=== PATIENT | male | born 1945 | race Caucasian/White ===

== ENCOUNTER 2017-08-22 11:02 | Inpatient (IN) | payer MEDICARE, OTHER ==
[2017-08-22] MEDS: ACETAMINOPHEN 325 MG TAB PO (12:11)
[2017-08-22 12:18] LABS: ABNORMAL IP MESSAGE 1; HEMATOCRIT 31.8 % (42.0-52.0); HEMOGLOBIN 10.4 g/dl (14.0-18.0); MEAN CORPUSCULAR HEMOGLOBIN 33.4 pg (29.0-33.0); MEAN CORPUSCULAR HGB CONC 32.7 g/dl (32.0-37.0); MEAN CORPUSCULAR VOLUME 102.3 fl (82.0-101.0); MEAN PLATELET VOLUME 10.1 fl (7.4-10.4); PLATELET COUNT 510 10^3/UL (140-415); POSITIVE DIFF @See below; RED BLOOD COUNT 3.11 10^6/ul (4.70-6.10); RED CELL DISTRIBUTION WIDTH 16.6 % (11.5-14.5)
[2017-08-22 12:18] LABS: WHITE BLOOD COUNT 8.5 10^3/ul (4.8-10.8)
[2017-08-22 12:23] LABS: ADD MAN DIFF? YES
[2017-08-22 12:36] LABS: ALANINE AMINOTRANSFERASE 21 IU/L (13-69); ALBUMIN 3.8 g/dl (3.3-4.9); ALBUMIN/GLOBULIN RATIO 0.97; ALKALINE PHOSPHATASE 66 IU/L (42-121); ANION GAP 20 (8-16); ASPARTATE AMINO TRANSFERASE 20 IU/L (15-46); BLOOD UREA NITROGEN 58 mg/dl (7-20); CALCIUM 8.6 mg/dl (8.4-10.2); CARBON DIOXIDE 16 mmol/L (21-31); CHLORIDE 108 mmol/L (97-110); CREATININE 5.18 mg/dl (0.61-1.24); GLUCOSE 154 mg/dl (70-220); SODIUM 138 mmol/L (135-144); TOTAL PROTEIN 7.7 g/dl (6.1-8.1)
[2017-08-22 12:38] LABS: POTASSIUM 5.6 mmol/L (3.5-5.1)
[2017-08-22 12:44] LABS: INR 0.94; PROTIME 12.7 Sec (11.9-14.9)
[2017-08-22 12:45] LABS: PARTIAL THROMBOPLASTIN TIME 42.6 Sec (25.0-35.0)
[2017-08-22 12:48] LABS: TROPONIN-I < 0.012 ng/ml (0.00-0.12); URINE BLOOD (Dip) POC 2+ (NEGATIVE); URINE GLUCOSE (Dip) POC Negative (NEGATIVE); URINE KETONES (Dip) POC Negative (NEGATIVE); URINE LEUKOCYTE EST (Dip) POC Trace (NEGATIVE); URINE NITRITE (Dip) POC Negative (NEGATIVE); URINE TOTAL PROTEIN POC 3+ (NEGATIVE)
[2017-08-22 12:53] LABS: BAND NEUTROPHILS #M 1.3 10^3/ul (0.0-0.6); BAND NEUTROPHILS % (M) 16 % (0-4); LYMPHOCYTES #M 0.1 10^3/ul (0.8-2.9); LYMPHOCYTES % (M) 2 % (15-51); REACTIVE LYMPHOCYTES% (M) 1 % (0-0); SEG NEUT #M 6.7 10^3/ul (1.6-7.5); SEGMENTED NEUTROPHILS (M) % 77 % (39-77)
[2017-08-22 12:54] LABS: ANISOCYTOSIS 2+ (0-0); BASOPHILS % (M) 1 % (0-2); EOSINOPHILS % (M) 3 % (0-7); MICROCYTOSIS 1+ (0-0); PLATELET ESTIMATE INCREASED; POLYCHROMASIA 3+ (0-0)
[2017-08-22] MEDS: ALBUTEROL 0.5% (NEB) 2.5 MG/0.5 ML AMP INH (13:16)
[2017-08-22 13:20] LABS: ADD UMIC YES; UR ASCORBIC ACID NEGATIVE (NEGATIVE); UR BACTERIA FEW /HPF (NONE SEEN); UR BILIRUBIN (Dip) NEGATIVE (NEGATIVE); UR BLOOD (Dip) 2+ mg/dL (NEGATIVE); UR BUDDING YEAST MANY /HPF (NONE SEEN); UR CLARITY SLIGHTLY CLOUDY (CLEAR); UR COLOR YELLOW (YELLOW); UR GLUCOSE (Dip) 1+ mg/dL (NEGATIVE); UR KETONES (Dip) NEGATIVE (NEGATIVE); UR LEUKOCYTE ESTERASE (Dip) 1+ Leu/ul (NEGATIVE); UR NITRITE (Dip) NEGATIVE (NEGATIVE); UR RBC 49 /HPF (0-5); UR SPECIFIC GRAVITY (Dip) 1.011 (1.003-1.030); UR TOTAL PROTEIN (Dip) 3+ mg/dl (NEGATIVE); UR UROBILINOGEN (Dip) NEGATIVE (NEGATIVE); UR WBC 94 /HPF (0-5)
[2017-08-22] MEDS: DEXTROSE 50% 50 ML SYRINGE IV (14:01)
[2017-08-22] MEDS: NA POLYST SULFON 15 GM/60 ML BTL PO (14:01)
[2017-08-22] MEDS: INSULIN REGULAR, HUMAN 100 UNIT/1 ML 3ML VIAL IVP (14:04)
[2017-08-22] MEDS: PIPER-TAZO 2.25 GM (PMX) 50 ML IVPB (14:41)
[2017-08-22 15:11] LABS: LACTIC ACID 3.9 mmol/L (0.5-2.0)
[2017-08-22] MEDS ORDERED: DEXTROSE 50% 50 ML SYRINGE IV ×2 (15:30)
[2017-08-22] MEDS ORDERED: GLUCAGON 1 MG INJ IM (15:30)
[2017-08-22] MEDS ORDERED: GLUCOSE GEL 15 GRAM TUBE PO ×2 (15:30)
[2017-08-22] MEDS ORDERED: BARIUM SULF 2% 450 ML BTL (BERRY SMOOTHIE) PO (15:30)
[2017-08-22] MEDS ORDERED: GLUCOSE GEL 15 GRAM TUBE BUCCAL (15:30)
[2017-08-22] MEDS: INSULIN ASPART [NOVOLOG] 3 ML PEN SC ×2 (17:18→22:58)
[2017-08-22 18:02] LABS: ANION GAP 19 (8-16); BLOOD UREA NITROGEN 57 mg/dl (7-20); CALCIUM 8.2 mg/dl (8.4-10.2); CARBON DIOXIDE 18 mmol/L (21-31); CHLORIDE 108 mmol/L (97-110); CREATININE 5.59 mg/dl (0.61-1.24); GLUCOSE 174 mg/dl (70-220); MAGNESIUM 1.6 mg/dl (1.7-2.5); PHOSPHORUS 5.7 mg/dl (2.5-4.9); POTASSIUM 4.8 mmol/L (3.5-5.1); SODIUM 140 mmol/L (135-144)
[2017-08-22 18:07] LABS: LACTIC ACID 2.2 mmol/L (0.5-2.0)
[2017-08-22] MEDS: TAMSULOSIN (SR) 0.4 MG CAP PO (22:26)
[2017-08-22] MEDS: FLUCONAZOLE 200 MG/NS (PMX) 100 ML IVPB (22:26)
[2017-08-23] MEDS: ACCU-CHEK XX (02:37)
[2017-08-23 06:41] LABS: ADD MAN DIFF? NO
[2017-08-23 06:51] LABS: ABNORMAL IP MESSAGE 1; HEMATOCRIT 26.3 % (42.0-52.0); HEMOGLOBIN 8.7 g/dl (14.0-18.0); MEAN CORPUSCULAR HEMOGLOBIN 33.9 pg (29.0-33.0); MEAN CORPUSCULAR HGB CONC 33.1 g/dl (32.0-37.0); MEAN CORPUSCULAR VOLUME 102.3 fl (82.0-101.0); MEAN PLATELET VOLUME 10.4 fl (7.4-10.4); PLATELET COUNT 404 10^3/UL (140-415); POSITIVE DIFF @See below; RED BLOOD COUNT 2.57 10^6/ul (4.70-6.10); RED CELL DISTRIBUTION WIDTH 16.3 % (11.5-14.5)
[2017-08-23 07:09] LABS: ANION GAP 17 (8-16); BLOOD UREA NITROGEN 53 mg/dl (7-20); CALCIUM 7.7 mg/dl (8.4-10.2); CARBON DIOXIDE 18 mmol/L (21-31); CHLORIDE 109 mmol/L (97-110); CREATININE 5.54 mg/dl (0.61-1.24); GLUCOSE 128 mg/dl (70-220); MAGNESIUM 1.5 mg/dl (1.7-2.5); PHOSPHORUS 5.8 mg/dl (2.5-4.9); SODIUM 139 mmol/L (135-144)
[2017-08-23] MEDS: MULTIVIT/CA CARB/B CMPLX/FA TAB PO (08:08)
[2017-08-23] MEDS: ATENOLOL 50 MG TAB PO (08:08)
[2017-08-23] MEDS: AMLODIPINE 5 MG TAB PO (08:09)
[2017-08-23] MEDS: INSULIN ASPART [NOVOLOG] 3 ML PEN SC ×4 (08:11→21:29)
[2017-08-23] MEDS: INSULIN GLARGINE [LANtus] 3 ML PEN SC (08:14)
[2017-08-23 10:08] LABS: ANISOCYTOSIS 1+ (0-0); BAND NEUTROPHILS #M 0.4 10^3/ul (0.0-0.6); BAND NEUTROPHILS % (M) 8 % (0-4); BASOPHIL #M 0.1 10^3/ul (0.0-0.0); BASOPHILS % (M) 3 % (0-2); EOSINOPHILS % (M) 1 % (0-7); GIANT THROMBO% (M) 2 % (0-0); LYMPHOCYTES #M 0.3 10^3/ul (0.8-2.9); LYMPHOCYTES % (M) 7 % (15-51); METAMYELOCYTES #M 0.1 10^3/ul (0.0-0.0); METAMYELOCYTES %M 2 % (0-0); MONOCYTE #M 0.3 10^3/ul (0.3-0.9); MONOCYTES % (M) 7 % (0-11); MYELOCYTES % (M) 1 % (0-0); OVALOCYTES 1+ (0-0); PLATELET ESTIMATE NORMAL; POIKILOCYTOSIS 1+ (0-0); POLYCHROMASIA 1+ (0-0); REACTIVE LYMPHOCYTES% (M) 1 % (0-0); SEG NEUT #M 3.5 10^3/ul (1.6-7.5); SEGMENTED NEUTROPHILS (M) % 70 % (39-77); SMUDGE%M 2 % (0-0); STOMATOCYTES 1+ (0-0)
[2017-08-23] MEDS: MAGNESIUM SULFATE 2 GM/50 ML 50 ML IVPB (11:19)
[2017-08-23] MEDS: SEVELAMER CARBONATE 0.8 GM PKT PO ×2 (12:37→17:46)
[2017-08-23] MEDS: CALCIUM ACETATE 667 MG CAP PO (17:46)
[2017-08-23] MEDS: FLUCONAZOLE 200 MG/NS (PMX) 100 ML IVPB (20:24)
[2017-08-23] MEDS: TAMSULOSIN (SR) 0.4 MG CAP PO (20:24)
[2017-08-23] MEDS: BARIUM SULF 2% 450 ML BTL (BERRY SMOOTHIE) PO (21:14)
[2017-08-24] MEDS: HYDROCODONE/APAP (5/325) TAB PO (01:07)
[2017-08-24] MEDS: ACCU-CHEK XX (03:38)
[2017-08-24] MEDS: INSULIN ASPART [NOVOLOG] 3 ML PEN SC ×2 (07:52→12:15)
[2017-08-24] MEDS: CALCIUM ACETATE 667 MG CAP PO ×2 (08:00→12:14)
[2017-08-24] MEDS: SEVELAMER CARBONATE 0.8 GM PKT PO ×2 (08:00→12:14)
[2017-08-24] MEDS: INSULIN GLARGINE [LANtus] 3 ML PEN SC (08:05)
[2017-08-24] MEDS: AMLODIPINE 5 MG TAB PO (08:22)
[2017-08-24] MEDS: MULTIVIT/CA CARB/B CMPLX/FA TAB PO (08:22)
[2017-08-24] MEDS: ATENOLOL 50 MG TAB PO (08:22)
[2017-08-24 08:37] LABS: WHITE BLOOD COUNT 3.9 10^3/ul (4.8-10.8)
[2017-08-24 08:37] LABS: ABNORMAL IP MESSAGE 1; HEMOGLOBIN 9.4 g/dl (14.0-18.0); MEAN CORPUSCULAR HGB CONC 32.4 g/dl (32.0-37.0); MEAN CORPUSCULAR VOLUME 101.8 fl (82.0-101.0); MEAN PLATELET VOLUME 10.3 fl (7.4-10.4); PLATELET COUNT 437 10^3/UL (140-415); POSITIVE DIFF @See below; RED BLOOD COUNT 2.85 10^6/ul (4.70-6.10); RED CELL DISTRIBUTION WIDTH 16.2 % (11.5-14.5)
[2017-08-24 08:39] LABS: ADD MAN DIFF? YES
[2017-08-24 08:59] LABS: ANION GAP 16 (8-16); BLOOD UREA NITROGEN 58 mg/dl (7-20); CARBON DIOXIDE 19 mmol/L (21-31); CHLORIDE 106 mmol/L (97-110); CREATININE 5.32 mg/dl (0.61-1.24); GLUCOSE 167 mg/dl (70-220); SODIUM 136 mmol/L (135-144)
[2017-08-24 09:35] LABS: ANISOCYTOSIS 1+ (0-0); BAND NEUTROPHILS #M 0.5 10^3/ul (0.0-0.6); BAND NEUTROPHILS % (M) 15 % (0-4); BASOPHIL #M 0.2 10^3/ul (0.0-0.0); BASOPHILS % (M) 7 % (0-2); EOSINOPHILS % (M) 4 % (0-7); LYMPHOCYTES #M 0.6 10^3/ul (0.8-2.9); LYMPHOCYTES % (M) 17 % (15-51); MICROCYTOSIS 1+ (0-0); MONOCYTES % (M) 2 % (0-11); PLATELET ESTIMATE INCREASED; POLYCHROMASIA 1+ (0-0); REACTIVE LYMPHOCYTES #M 0.1 10^3/ul (0.0-0.0); REACTIVE LYMPHOCYTES% (M) 3 % (0-0); SEGMENTED NEUTROPHILS (M) % 52 % (39-77); SMUDGE%M 10 % (0-0)
[2017-08-25] MEDS ORDERED: FLUCONAZOLE 200 MG TAB PO (09:00)
== END 2017-08-24 15:45 | disposition home or self-care (01) | DRG 872 ==
LOC: E/R 11:02 → TEL 13:08
DX: A41.81 Sepsis due to Enterococcus (principal); N17.9 Acute kidney failure, unspecified; E11.22 Type 2 diabetes mellitus with diabetic chronic kidney disease; N39.0 Urinary tract infection, site not specified; T83.511A Infection and inflammatory reaction due to indwelling urethral catheter, initial encounter; E83.42 Hypomagnesemia; N18.5 Chronic kidney disease, stage 5; E87.5 Hyperkalemia; B95.2 Enterococcus as the cause of diseases classified elsewhere; E83.39 Other disorders of phosphorus metabolism; R31.0 Gross hematuria; C61 Malignant neoplasm of prostate; E78.5 Hyperlipidemia, unspecified; I25.10 Atherosclerotic heart disease of native coronary artery without angina pectoris; R33.8 Other retention of urine; Z16.21 Resistance to vancomycin; Z95.5 Presence of coronary angioplasty implant and graft; Z87.891 Personal history of nicotine dependence; Z79.4 Long term (current) use of insulin; Z79.899 Other long term (current) drug therapy
CPT/HCPCS: 36415; 71045; 74176; 80048; 80053; 81001; 81003; 82962; 83036; 83605; 83735; 84100; 84153; 84154; 84484; 85025; 85610; 85730; 86850; 86900; 86901; 87040; 87086; 93005; 94664; 96374; 96375; 99285-25

== ENCOUNTER 2017-08-25 07:15 | Day surgery (SDC) | payer MEDICARE, OTHER ==
[2017-08-25 08:22] LABS: WHITE BLOOD COUNT 5.5 10^3/ul (4.8-10.8)
[2017-08-25 08:22] LABS: ABNORMAL IP MESSAGE 1; HEMATOCRIT 29.7 % (42.0-52.0); HEMOGLOBIN 9.5 g/dl (14.0-18.0); MEAN CORPUSCULAR HEMOGLOBIN 33.3 pg (29.0-33.0); MEAN CORPUSCULAR VOLUME 104.2 fl (82.0-101.0); MEAN PLATELET VOLUME 10.1 fl (7.4-10.4); PLATELET COUNT 423 10^3/UL (140-415); POSITIVE DIFF @See below; RED BLOOD COUNT 2.85 10^6/ul (4.70-6.10); RED CELL DISTRIBUTION WIDTH 16.1 % (11.5-14.5)
[2017-08-25 08:33] LABS: ADD MAN DIFF? YES
[2017-08-25 08:41] LABS: ANION GAP 18 (8-16); CARBON DIOXIDE 18 mmol/L (21-31); CHLORIDE 110 mmol/L (97-110); CHOL/HDL RATIO 6.4 RATIO; CHOLESTEROL 206 mg/dl (100-200); GLUCOSE 111 mg/dl (70-220); HDL CHOLESTEROL 32 mg/dl (31-75); LDL CHOLESTEROL,CALCULATED 120 mg/dl; TRIGLYCERIDES 268 mg/dl (0-149)
[2017-08-25 08:53] LABS: POTASSIUM 4.9 mmol/L (3.5-5.1); SODIUM 141 mmol/L (135-144)
[2017-08-25 08:55] LABS: INR 1.06; PROTIME 13.9 Sec (11.9-14.9); PT RATIO 1.1
[2017-08-25 08:56] LABS: CREATININE 5.19 mg/dl (0.61-1.24)
[2017-08-25 08:57] LABS: BLOOD UREA NITROGEN 61 mg/dl (7-20)
[2017-08-25 09:02] LABS: PARTIAL THROMBOPLASTIN TIME 46.2 Sec (25.0-35.0)
[2017-08-25] MEDS ORDERED: FAMOTIDINE 20 MG TAB PO (09:30)
[2017-08-25] MEDS ORDERED: SOD CHLORIDE 0.45% 1,000 ML IV (09:30)
[2017-08-25] MEDS ORDERED: DIAZEPAM 5 MG TAB PO (09:30)
[2017-08-25] MEDS ORDERED: DIPHENHYDRAMINE 50 MG CAP PO (09:30)
[2017-08-25 09:41] LABS: ANISOCYTOSIS 1+ (0-0); BAND NEUTROPHILS #M 0.8 10^3/ul (0.0-0.6); BAND NEUTROPHILS % (M) 16 % (0-4); BASOPHIL #M 0.1 10^3/ul (0.0-0.0); BASOPHILS % (M) 3 % (0-2); EOSINOPHILS % (M) 5 % (0-7); ERYTHROBLAST% (NRBC) (M) 2 % (0-0); GIANT THROMBO% (M) 2 % (0-0); LYMPHOCYTES #M 0.3 10^3/ul (0.8-2.9); LYMPHOCYTES % (M) 7 % (15-51); METAMYELOCYTES #M 0.1 10^3/ul (0.0-0.0); METAMYELOCYTES %M 2 % (0-0); MICROCYTOSIS 1+ (0-0); MONOCYTES % (M) 1 % (0-11); PLATELET ESTIMATE INCREASED; POIKILOCYTOSIS 1+ (0-0); POLYCHROMASIA 2+ (0-0); SEG NEUT #M 3.7 10^3/ul (1.6-7.5); SEGMENTED NEUTROPHILS (M) % 66 % (39-77); SMUDGE%M 3 % (0-0)
== END 2017-08-25 10:01 | disposition home or self-care (01) ==
LOC: SDS 07:15
DX: R07.9 Chest pain, unspecified (principal); R06.02 Shortness of breath; Z53.9 Procedure and treatment not carried out, unspecified reason
CPT/HCPCS: 71045; 80048; 80061; 82962; 85025; 85610; 85730; 93005

== ENCOUNTER 2017-10-22 11:50 | Emergency (ER) | payer SELFPAY, OTHER, MEDICARE | END 2017-10-22 12:36 | disposition left against medical advice (07) | LOC: E/R 12:36 | DX: Z53.21 Procedure and treatment not carried out due to patient leaving prior to being seen by health care provider (principal) ==

== ENCOUNTER 2017-10-22 21:05 | Inpatient (IN) | payer MEDICARE, OTHER ==
[2017-10-22] MEDS: SOD CHLORIDE 0.9% 1,000 ML IV (02:30)
[2017-10-22] MEDS: ONDANSETRON 4 MG INJ IV ×2 (21:35→23:19)
[2017-10-22] MEDS: morphine 4 MG/ML VIAL IV (21:35)
[2017-10-22 21:55] LABS: ABNORMAL IP MESSAGE 1; HEMATOCRIT 33.4 % (42.0-52.0); HEMOGLOBIN 10.7 g/dl (14.0-18.0); MEAN CORPUSCULAR HEMOGLOBIN 32.3 pg (29.0-33.0); MEAN CORPUSCULAR VOLUME 100.9 fl (82.0-101.0); MEAN PLATELET VOLUME 10.3 fl (7.4-10.4); PLATELET COUNT 450 10^3/UL (140-415); POSITIVE DIFF @See below; RED BLOOD COUNT 3.31 10^6/ul (4.70-6.10); RED CELL DISTRIBUTION WIDTH 15.7 % (11.5-14.5)
[2017-10-22 21:55] LABS: WHITE BLOOD COUNT 8.6 10^3/ul (4.8-10.8)
[2017-10-22 22:16] LABS: INR 1.14; PROTIME 14.8 Sec (11.9-14.9); PT RATIO 1.2
[2017-10-22 22:17] LABS: PARTIAL THROMBOPLASTIN TIME 44.2 Sec (25.0-35.0)
[2017-10-22 22:22] LABS: ALANINE AMINOTRANSFERASE 21 IU/L (13-69); ALBUMIN 3.8 g/dl (3.3-4.9); ALBUMIN/GLOBULIN RATIO 1.05; ALKALINE PHOSPHATASE 73 IU/L (42-121); ANION GAP 22 (8-16); ASPARTATE AMINO TRANSFERASE 31 IU/L (15-46); BLOOD UREA NITROGEN 61 mg/dl (7-20); CALCIUM 8.1 mg/dl (8.4-10.2); CARBON DIOXIDE 18 mmol/L (21-31); CHLORIDE 104 mmol/L (97-110); GLUCOSE 223 mg/dl (70-220); POTASSIUM 5.4 mmol/L (3.5-5.1); SODIUM 139 mmol/L (135-144); TOTAL PROTEIN 7.4 g/dl (6.1-8.1)
[2017-10-22 22:25] LABS: LACTIC ACID 3.1 mmol/L (0.5-2.0)
[2017-10-22 22:34] LABS: ADD MAN DIFF? YES
[2017-10-22 22:35] LABS: TROPONIN-I < 0.012 ng/ml (0.00-0.12)
[2017-10-22] MEDS: CEFTRIAXONE 1 GM/50 ML (PMX) 50 ML IVPB (23:20)
[2017-10-22] MEDS: HYDROmorphONE 1 MG/5 ML IV SYRINGE IV (23:20)
[2017-10-22] MEDS: SODIUM CHLORIDE 0.9% 1L BAG IV* (23:22)
[2017-10-22] MEDS ORDERED: DOCUSATE SODIUM 100 MG CAP PO (23:30)
[2017-10-22] MEDS ORDERED: ACETAMINOPHEN 325 MG TAB PO (23:30)
[2017-10-22] MEDS ORDERED: NACL 0.9% 3 ML SYG IV (23:30)
[2017-10-22] MEDS ORDERED: BISACODYL (EC) 5 MG TAB PO (23:30)
[2017-10-22 23:31] LABS: ANISOCYTOSIS 1+ (0-0); BAND NEUTROPHILS #M 1.8 10^3/ul (0.0-0.6); BAND NEUTROPHILS % (M) 21 % (0-4); BASOPHILS % (M) 1 % (0-2); EOSINOPHILS % (M) 1 % (0-7); GIANT THROMBO% (M) 1 % (0-0); LYMPHOCYTES #M 0.3 10^3/ul (0.8-2.9); LYMPHOCYTES % (M) 4 % (15-51); MICROCYTOSIS 1+ (0-0); MONOCYTE #M 0.1 10^3/ul (0.3-0.9); MONOCYTES % (M) 2 % (0-11); MYELOCYTES #M 0.1 10^3/ul (0.0-0.0); MYELOCYTES % (M) 2 % (0-0); PLATELET ESTIMATE INCREASED; POIKILOCYTOSIS 1+ (0-0); POLYCHROMASIA 1+ (0-0); SEG NEUT #M 6.1 10^3/ul (1.6-7.5); SEGMENTED NEUTROPHILS (M) % 69 % (39-77); SMUDGE%M 2 % (0-0)
[2017-10-23] MEDS: AZITHROMYCIN 500MG/NS (PMX) 250 ML IV (00:05)
[2017-10-23 00:06] LABS: LIPASE 159 U/L (23-300)
[2017-10-23 00:11] LABS: LACTIC ACID 2.8 mmol/L (0.5-2.0)
[2017-10-23 00:34] LABS: ADD UMIC YES; UR ASCORBIC ACID NEGATIVE (NEGATIVE); UR BACTERIA FEW /HPF (NONE SEEN); UR BILIRUBIN (Dip) NEGATIVE (NEGATIVE); UR BLOOD (Dip) NEGATIVE (NEGATIVE); UR CLARITY CLEAR (CLEAR); UR COLOR YELLOW (YELLOW); UR GLUCOSE (Dip) 2+ mg/dL (NEGATIVE); UR KETONES (Dip) NEGATIVE (NEGATIVE); UR LEUKOCYTE ESTERASE (Dip) NEGATIVE Leu/ul (NEGATIVE); UR NITRITE (Dip) NEGATIVE (NEGATIVE); UR RBC 1 /HPF (0-5); UR SPECIFIC GRAVITY (Dip) 1.013 (1.003-1.030); UR TOTAL PROTEIN (Dip) 3+ mg/dl (NEGATIVE); UR UROBILINOGEN (Dip) NEGATIVE (NEGATIVE); UR WBC 5 /HPF (0-5)
[2017-10-23] MEDS: AZTREONAM 1 GM/NS (PMX) 50 ML IVPB (01:22)
[2017-10-23] MEDS: morphine 2 MG INJ IV ×5 (02:12→20:44)
[2017-10-23 04:01] LABS: LACTIC ACID 2.5 mmol/L (0.5-2.0)
[2017-10-23] MEDS ORDERED: VANCOMYCIN IV PER PHARMACY XX (05:00)
[2017-10-23] MEDS: ONDANSETRON 4 MG INJ IV ×2 (05:45→20:36)
[2017-10-23] MEDS: VANCOMYCIN 1.5 GM in SOD CHLORIDE 0.9% 250 ML IVPB (05:51)
[2017-10-23 06:14] LABS: WHITE BLOOD COUNT 9.6 10^3/ul (4.8-10.8)
[2017-10-23 06:14] LABS: ABNORMAL IP MESSAGE 1; HEMATOCRIT 30.3 % (42.0-52.0); HEMOGLOBIN 9.5 g/dl (14.0-18.0); MEAN CORPUSCULAR HEMOGLOBIN 32.4 pg (29.0-33.0); MEAN CORPUSCULAR HGB CONC 31.4 g/dl (32.0-37.0); MEAN CORPUSCULAR VOLUME 103.4 fl (82.0-101.0); MEAN PLATELET VOLUME 10.4 fl (7.4-10.4); PLATELET COUNT 386 10^3/UL (140-415); POSITIVE DIFF @See below; RED BLOOD COUNT 2.93 10^6/ul (4.70-6.10); RED CELL DISTRIBUTION WIDTH 15.7 % (11.5-14.5)
[2017-10-23 06:22] LABS: LACTIC ACID 3.2 mmol/L (0.5-2.0)
[2017-10-23 06:29] LABS: HEMOGLOBIN A1C 5.9 % (0-5.9)
[2017-10-23 06:44] LABS: C-REACTIVE PROTEIN 18.3 mg/dl (0.0-0.9)
[2017-10-23] MEDS: LABETALOL HCL 20MG INJ IV (06:52)
[2017-10-23 06:58] LABS: CARCINOEMBRYONIC ANTIGEN 2.7 ng/ml (0.0-5.0)
[2017-10-23] MEDS ORDERED: PIPER-TAZO 2.25 GM (PMX) 50 ML IVPB ×2 (07:30→12:00)
[2017-10-23 07:53] LABS: ERYTHROCYTE SEDIMENTATION RATE 103 mm/Hr (0-20)
[2017-10-23 08:25] LABS: ALANINE AMINOTRANSFERASE 12 IU/L (13-69); ALBUMIN 3.2 g/dl (3.3-4.9); ALKALINE PHOSPHATASE 57 IU/L (42-121); ANION GAP 23 (8-16); ASPARTATE AMINO TRANSFERASE 21 IU/L (15-46); BLOOD UREA NITROGEN 58 mg/dl (7-20); CALCIUM 7.2 mg/dl (8.4-10.2); CARBON DIOXIDE 15 mmol/L (21-31); CHLORIDE 111 mmol/L (97-110); CHOL/HDL RATIO 5.1 RATIO; CHOLESTEROL 149 mg/dl (100-200); CREATININE 5.48 mg/dl (0.61-1.24); GLUCOSE 242 mg/dl (70-220); HDL CHOLESTEROL 29 mg/dl (31-75); LDL CHOLESTEROL,CALCULATED 87 mg/dl; MAGNESIUM 1.3 mg/dl (1.7-2.5); SODIUM 143 mmol/L (135-144); TOTAL PROTEIN 6.4 g/dl (6.1-8.1); TRIGLYCERIDES 166 mg/dl (0-149)
[2017-10-23] MEDS ORDERED: GLUCAGON 1 MG INJ IM (08:30)
[2017-10-23] MEDS ORDERED: GLUCOSE GEL 15 GRAM TUBE PO ×2 (08:30)
[2017-10-23] MEDS ORDERED: DEXTROSE 50% 50 ML SYRINGE IV ×2 (08:30)
[2017-10-23] MEDS ORDERED: GLUCOSE GEL 15 GRAM TUBE BUCCAL (08:30)
[2017-10-23] MEDS: hydrALAzine 20 MG INJ IV ×2 (08:39→13:15)
[2017-10-23] MEDS: PIPER-TAZO 2.25 GM (PMX) 50 ML IVPB ×3 (08:47→23:38)
[2017-10-23] MEDS: SOD CHLORIDE 0.9% 1,000 ML IV (08:48)
[2017-10-23] MEDS: SOD CHLORIDE 0.9% 500 ML IV (08:48)
[2017-10-23 09:12] LABS: POTASSIUM 5.9 mmol/L (3.5-5.1)
[2017-10-23] MEDS ORDERED: metroNIDAZOLE 500 MG TAB PO (10:00)
[2017-10-23] MEDS: RANOLAZINE (SR) 500 MG TAB PO ×2 (10:16→20:36)
[2017-10-23] MEDS: ASPIRIN (EC) 81 MG TAB PO (10:17)
[2017-10-23] MEDS: MULTIVIT/CA CARB/B CMPLX/FA TAB PO (10:17)
[2017-10-23] MEDS: FLUCONAZOLE 200 MG TAB PO (10:17)
[2017-10-23] MEDS: ATENOLOL 50 MG TAB PO (10:18)
[2017-10-23] MEDS: AMLODIPINE 5 MG TAB PO (10:18)
[2017-10-23] MEDS: INSULIN ASPART [NOVOLOG] 3 ML PEN SC ×4 (10:23→20:59)
[2017-10-23] MEDS: SOD CHLORIDE 0.45% 1,000 ML IV ×2 (10:53→20:46)
[2017-10-23 11:05] LABS: ADD MAN DIFF? YES
[2017-10-23 11:06] LABS: BAND NEUTROPHILS #M 1.3 10^3/ul (0.0-0.6); BAND NEUTROPHILS % (M) 14 % (0-4); LYMPHOCYTES #M 0.1 10^3/ul (0.8-2.9); LYMPHOCYTES % (M) 2 % (15-51); MONOCYTE #M 0.1 10^3/ul (0.3-0.9); MONOCYTES % (M) 2 % (0-11); SEG NEUT #M 7.9 10^3/ul (1.7-7.5); SEGMENTED NEUTROPHILS (M) % 81 % (39-77)
[2017-10-23 11:08] LABS: ANISOCYTOSIS 1+ (0-0); BURR CELLS 1+ (0-0); GIANT THROMBO% (M) 2 % (0-0); MICROCYTOSIS 1+ (0-0); OVALOCYTES 1+ (0-0); PLATELET ESTIMATE INCREASED; POIKILOCYTOSIS 2+ (0-0); POLYCHROMASIA 1+ (0-0)
[2017-10-23] MEDS: MAGNESIUM SULFATE 3 GM in DEXTROSE 5% 100 ML IVPB (11:15)
[2017-10-23] MEDS: CALCIUM GLUCONATE 10% 1 GM in DEXTROSE 5% 100 ML IVPB (11:15)
[2017-10-23 11:53] LABS: LACTIC ACID 2.9 mmol/L (0.5-2.0)
[2017-10-23 11:54] LABS: CREATINE KINASE 37 IU/L (23-200)
[2017-10-23 12:01] LABS: CK INDEX 1.1
[2017-10-23 12:12] LABS: AADO2 Arterial 47.9 mmHg (7.0-24.0); Allen Test ACCEPTAB; Arterial Base Excess -9.6 mmol/L (-3.0-3); Arterial COHb 0.1 % (0.0-3.0); Arterial Fraction of Oxyhgb 91.5 % (93.0-99.0); Arterial HCO3 15.3 mmol/L (22.0-26.0); Arterial MetHb 0.4 % (0.0-1.5); Arterial Total Hemglobin 11.4 g/dl (12.0-18.0); Arterial pCO2 30.3 mmhg (35-45); MODE ROOM AIR; Site Left Radial
[2017-10-23 12:14] LABS: CK-MB 0.42 ng/ml (0.0-2.4); TROPONIN-I 0.035 ng/ml (0.00-0.12)
[2017-10-23] MEDS: CALCIUM ACETATE 667 MG CAP PO ×2 (12:54→17:34)
[2017-10-23] MEDS: TAMSULOSIN (SR) 0.4 MG CAP PO (20:36)
[2017-10-23 22:35] LABS: ALANINE AMINOTRANSFERASE 13 IU/L (13-69); ALBUMIN/GLOBULIN RATIO 0.96; ALKALINE PHOSPHATASE 50 IU/L (42-121); ANION GAP 19 (8-16); ASPARTATE AMINO TRANSFERASE 19 IU/L (15-46); BLOOD UREA NITROGEN 61 mg/dl (7-20); CALCIUM 7.7 mg/dl (8.4-10.2); CARBON DIOXIDE 17 mmol/L (21-31); CHLORIDE 107 mmol/L (97-110); CREATININE 5.39 mg/dl (0.61-1.24); GLUCOSE 167 mg/dl (70-220); POTASSIUM 5.5 mmol/L (3.5-5.1); SODIUM 137 mmol/L (135-144); TOTAL PROTEIN 6.1 g/dl (6.1-8.1)
[2017-10-24] MEDS: morphine 2 MG INJ IV ×2 (00:52→04:54)
[2017-10-24] MEDS: INSULIN ASPART [NOVOLOG] 3 ML PEN SC ×6 (00:58→21:00)
[2017-10-24] MEDS: ACCU-CHEK XX (01:06)
[2017-10-24] MEDS: SOD CHLORIDE 0.45% 1,000 ML IV ×3 (03:10→22:55)
[2017-10-24] MEDS: ALBUTEROL/IPRATROPIUM (NEB) 3 ML AMP HHN (04:51)
[2017-10-24] MEDS: PIPER-TAZO 2.25 GM (PMX) 50 ML IVPB ×3 (06:35→21:04)
[2017-10-24 08:24] LABS: ADD MAN DIFF? NO
[2017-10-24 08:43] LABS: ABNORMAL IP MESSAGE 1; BASOPHILS % 0.2 % (0.0-2.0); EOSINOPHILS % 0.1 % (0.0-7.0); HEMATOCRIT 27.6 % (42.0-52.0); HEMOGLOBIN 8.8 g/dl (14.0-18.0); LYMPHOCYTES # 0.3 10^3/ul (0.8-2.9); LYMPHOCYTES % 3.1 % (15.0-51.0); MEAN CORPUSCULAR HEMOGLOBIN 32.7 pg (29.0-33.0); MEAN CORPUSCULAR HGB CONC 31.9 g/dl (32.0-37.0); MEAN CORPUSCULAR VOLUME 102.6 fl (82.0-101.0); MEAN PLATELET VOLUME 10.8 fl (7.4-10.4); MONOCYTE # 0.4 10^3/ul (0.3-0.9); MONOCYTES % 4.2 % (0.0-11.0); NEUTROPHIL # 7.6 10^3/ul (1.6-7.5); NEUTROPHILS % 85.1 % (39.0-77.0); PLATELET COUNT 350 10^3/UL (140-415); POSITIVE DIFF @See below; RED BLOOD COUNT 2.69 10^6/ul (4.70-6.10); RED CELL DISTRIBUTION WIDTH 15.8 % (11.5-14.5)
[2017-10-24] MEDS: ASPIRIN (EC) 81 MG TAB PO (08:46)
[2017-10-24] MEDS: RANOLAZINE (SR) 500 MG TAB PO ×2 (08:46→20:58)
[2017-10-24] MEDS: ATENOLOL 50 MG TAB PO (08:47)
[2017-10-24] MEDS: CALCIUM ACETATE 667 MG CAP PO ×3 (08:47→17:59)
[2017-10-24] MEDS: AMLODIPINE 5 MG TAB PO (08:48)
[2017-10-24] MEDS: MULTIVIT/CA CARB/B CMPLX/FA TAB PO (08:48)
[2017-10-24] MEDS: FLUCONAZOLE 200 MG TAB PO (08:48)
[2017-10-24] MEDS: INSULIN GLARGINE [LANtus] 3 ML PEN SC (08:52)
[2017-10-24 09:09] LABS: ALANINE AMINOTRANSFERASE 14 IU/L (13-69); ALBUMIN 2.5 g/dl (3.3-4.9); ALBUMIN/GLOBULIN RATIO 0.96; ALKALINE PHOSPHATASE 44 IU/L (42-121); ANION GAP 23 (8-16); ASPARTATE AMINO TRANSFERASE 22 IU/L (15-46); BLOOD UREA NITROGEN 66 mg/dl (7-20); CALCIUM 7.6 mg/dl (8.4-10.2); CARBON DIOXIDE 12 mmol/L (21-31); CHLORIDE 106 mmol/L (97-110); CREATININE 5.45 mg/dl (0.61-1.24); GLUCOSE 182 mg/dl (70-220); PHOSPHORUS 7.2 mg/dl (2.5-4.9); POTASSIUM 5.8 mmol/L (3.5-5.1); SODIUM 135 mmol/L (135-144); TOTAL PROTEIN 5.1 g/dl (6.1-8.1)
[2017-10-24 09:54] LABS: ANISOCYTOSIS 1+ (0-0); BAND NEUTROPHILS #M 1.6 10^3/ul (0.0-0.6); BAND NEUTROPHILS % (M) 18 % (0-4); BASOPHIL #M 0.4 10^3/ul (0.0-0.0); BASOPHILS % (M) 5 % (0-2); LYMPHOCYTES #M 0.5 10^3/ul (0.8-2.9); LYMPHOCYTES % (M) 6 % (15-51); MONOCYTE #M 0.2 10^3/ul (0.3-0.9); MONOCYTES % (M) 3 % (0-11); PLATELET ESTIMATE NORMAL; POIKILOCYTOSIS 2+ (0-0); POLYCHROMASIA 3+ (0-0); SEG NEUT #M 6.3 10^3/ul (1.6-7.5); SEGMENTED NEUTROPHILS (M) % 68 % (39-77); SMUDGE%M 5 % (0-0)
[2017-10-24] MEDS: IOHEXOL 14.3 MG(I)/ML (ADULT) BTL PO (16:19)
[2017-10-24 16:50] LABS: LACTIC ACID 1.3 mmol/L (0.5-2.0)
[2017-10-24] MEDS ORDERED: FLUCONAZOLE 100 MG/NS (PMX) 50 ML IVPB (17:00)
[2017-10-24 19:07] LABS: LACTIC ACID 1.4 mmol/L (0.5-2.0)
[2017-10-24] MEDS: TAMSULOSIN (SR) 0.4 MG CAP PO (20:59)
[2017-10-25] MEDS ORDERED: DEXTROSE 50% 50 ML SYRINGE IV ×4 (00:30→22:00)
[2017-10-25] MEDS ORDERED: GLUCAGON 1 MG INJ IM ×2 (00:30→22:00)
[2017-10-25] MEDS ORDERED: GLUCOSE GEL 15 GRAM TUBE BUCCAL ×2 (00:30→22:00)
[2017-10-25] MEDS ORDERED: GLUCOSE GEL 15 GRAM TUBE PO ×4 (00:30→22:00)
[2017-10-25 00:33] LABS: LACTIC ACID 0.9 mmol/L (0.5-2.0)
[2017-10-25] MEDS: ACCU-CHEK XX ×2 (01:49)
[2017-10-25 03:49] LABS: ADD MAN DIFF? NO
[2017-10-25 04:04] LABS: ABNORMAL IP MESSAGE 1; BASOPHILS % 0.3 % (0.0-2.0); EOSINOPHILS % 0.2 % (0.0-7.0); HEMATOCRIT 27.3 % (42.0-52.0); LYMPHOCYTES # 0.2 10^3/ul (0.8-2.9); LYMPHOCYTES % 2.5 % (15.0-51.0); MEAN CORPUSCULAR HEMOGLOBIN 33.2 pg (29.0-33.0); MEAN CORPUSCULAR VOLUME 100.7 fl (82.0-101.0); MEAN PLATELET VOLUME 11.1 fl (7.4-10.4); MONOCYTE # 0.5 10^3/ul (0.3-0.9); MONOCYTES % 5.9 % (0.0-11.0); NEUTROPHIL # 7.5 10^3/ul (1.6-7.5); NEUTROPHILS % 84.6 % (39.0-77.0); PLATELET COUNT 391 10^3/UL (140-415); POSITIVE DIFF @See below; RED BLOOD COUNT 2.71 10^6/ul (4.70-6.10); RED CELL DISTRIBUTION WIDTH 15.8 % (11.5-14.5)
[2017-10-25 04:04] LABS: WHITE BLOOD COUNT 8.9 10^3/ul (4.8-10.8)
[2017-10-25 04:13] LABS: VANCOMYCIN,RANDOM 10.1 ug/ml
[2017-10-25 04:23] LABS: ANION GAP 22 (8-16); BLOOD UREA NITROGEN 83 mg/dl (7-20); CARBON DIOXIDE 15 mmol/L (21-31); CHLORIDE 97 mmol/L (97-110); CREATININE 7.01 mg/dl (0.61-1.24); GLUCOSE 94 mg/dl (70-220); POTASSIUM 5.5 mmol/L (3.5-5.1); SODIUM 128 mmol/L (135-144)
[2017-10-25] MEDS: PIPER-TAZO 2.25 GM (PMX) 50 ML IVPB ×3 (05:30→21:02)
[2017-10-25] MEDS: INSULIN ASPART [NOVOLOG] 3 ML PEN SC ×4 (08:00→20:53)
[2017-10-25] MEDS: CALCIUM ACETATE 667 MG CAP PO ×3 (08:53→17:15)
[2017-10-25] MEDS: MULTIVIT/CA CARB/B CMPLX/FA TAB PO (08:53)
[2017-10-25] MEDS: RANOLAZINE (SR) 500 MG TAB PO ×2 (08:54→20:47)
[2017-10-25] MEDS: ASPIRIN (EC) 81 MG TAB PO (08:54)
[2017-10-25] MEDS: AMLODIPINE 5 MG TAB PO (08:54)
[2017-10-25] MEDS: ATENOLOL 50 MG TAB PO (08:54)
[2017-10-25] MEDS: INSULIN GLARGINE [LANtus] 3 ML PEN SC (09:12)
[2017-10-25 09:46] LABS: LACTIC ACID 0.7 mmol/L (0.5-2.0)
[2017-10-25] MEDS: NA POLYST SULFON 15 GM/60 ML BTL PO (10:58)
[2017-10-25] MEDS: FUROSEMIDE 40 MG INJ IV (10:58)
[2017-10-25 12:09] LABS: LACTIC ACID 1.1 mmol/L (0.5-2.0)
[2017-10-25] MEDS: HYDROmorphONE 0.5 MG/0.5 ML SYG IV (12:46)
[2017-10-25] MEDS: ONDANSETRON 4 MG INJ IV (12:46)
[2017-10-25] MEDS: SOD CHLORIDE 0.45% 1,000 ML IV (12:51)
[2017-10-25] MEDS: ALBUTEROL/IPRATROPIUM (NEB) 3 ML AMP HHN (14:18)
[2017-10-25] MEDS: VANCOMYCIN 1 GM 250 ML IVPB (14:48)
[2017-10-25 16:01] LABS: IRON 27 ug/dl (35-150)
[2017-10-25 16:02] LABS: PHOSPHORUS 9.4 mg/dl (2.5-4.9)
[2017-10-25 16:11] LABS: % IRON SATURATION 19 % SAT (22-52); TOTAL IRON BINDING CAPACITY 144 ug/dl (241-421)
[2017-10-25] MEDS: FLUCONAZOLE 100 MG/NS (PMX) 50 ML IVPB (17:00)
[2017-10-25 18:12] LABS: PSA, FREE 1.7 ng/mL
[2017-10-25 18:22] LABS: ANION GAP 21 (8-16); BLOOD UREA NITROGEN 98 mg/dl (7-20); CALCIUM 7.2 mg/dl (8.4-10.2); CARBON DIOXIDE 15 mmol/L (21-31); CHLORIDE 97 mmol/L (97-110); GLUCOSE 95 mg/dl (70-220); POTASSIUM 5.7 mmol/L (3.5-5.1); SODIUM 127 mmol/L (135-144)
[2017-10-25 18:42] LABS: CREATININE 6.83 mg/dl (0.61-1.24)
[2017-10-25] MEDS: CALCIUM CARBONATE 500 MG CHEW TAB PO (19:05)
[2017-10-25] MEDS: TAMSULOSIN (SR) 0.4 MG CAP PO (20:47)
[2017-10-26] MEDS: PIPER-TAZO 2.25 GM (PMX) 50 ML IVPB ×2 (05:10→13:44)
[2017-10-26] MEDS: INSULIN ASPART [NOVOLOG] 3 ML PEN SC ×3 (05:16→18:00)
[2017-10-26] MEDS: CALCIUM ACETATE 667 MG CAP PO ×3 (08:00→17:59)
[2017-10-26] MEDS: ASPIRIN (EC) 81 MG TAB PO (08:04)
[2017-10-26] MEDS: AMLODIPINE 5 MG TAB PO (08:56)
[2017-10-26] MEDS: MULTIVIT/CA CARB/B CMPLX/FA TAB PO (08:56)
[2017-10-26] MEDS: RANOLAZINE (SR) 500 MG TAB PO ×2 (08:56→21:00)
[2017-10-26] MEDS: CALCIUM CARBONATE 500 MG CHEW TAB PO ×3 (08:57→20:50)
[2017-10-26] MEDS: ATENOLOL 50 MG TAB PO (08:57)
[2017-10-26 10:32] LABS: ADD MAN DIFF? NO
[2017-10-26 10:35] LABS: WHITE BLOOD COUNT 9.5 10^3/ul (4.8-10.8)
[2017-10-26 10:35] LABS: ABNORMAL IP MESSAGE 1; BASOPHILS % 0.2 % (0.0-2.0); EOSINOPHILS % 0.4 % (0.0-7.0); HEMATOCRIT 22.6 % (42.0-52.0); HEMOGLOBIN 7.5 g/dl (14.0-18.0); LYMPHOCYTES # 0.2 10^3/ul (0.8-2.9); LYMPHOCYTES % 2.1 % (15.0-51.0); MEAN CORPUSCULAR HEMOGLOBIN 32.8 pg (29.0-33.0); MEAN CORPUSCULAR HGB CONC 33.2 g/dl (32.0-37.0); MEAN CORPUSCULAR VOLUME 98.7 fl (82.0-101.0); MEAN PLATELET VOLUME 11.2 fl (7.4-10.4); MONOCYTE # 0.7 10^3/ul (0.3-0.9); MONOCYTES % 7.7 % (0.0-11.0); NEUTROPHIL # 8.3 10^3/ul (1.6-7.5); NEUTROPHILS % 87.4 % (39.0-77.0); PLATELET COUNT 437 10^3/UL (140-415); POSITIVE DIFF @See below; RED BLOOD COUNT 2.29 10^6/ul (4.70-6.10); RED CELL DISTRIBUTION WIDTH 15.3 % (11.5-14.5)
[2017-10-26 11:07] LABS: ANION GAP 25 (8-16); BLOOD UREA NITROGEN 112 mg/dl (7-20); CARBON DIOXIDE 16 mmol/L (21-31); CHLORIDE 93 mmol/L (97-110); GLUCOSE 71 mg/dl (70-220); POTASSIUM 5.8 mmol/L (3.5-5.1); SODIUM 128 mmol/L (135-144)
[2017-10-26 11:12] LABS: ANISOCYTOSIS 1+ (0-0); BAND NEUTROPHILS #M 2.5 10^3/ul (0.0-0.6); BAND NEUTROPHILS % (M) 27 % (0-4); LYMPHOCYTES #M 0.4 10^3/ul (0.8-2.9); LYMPHOCYTES % (M) 5 % (15-51); MICROCYTOSIS 1+ (0-0); MONOCYTE #M 0.1 10^3/ul (0.3-0.9); MONOCYTES % (M) 2 % (0-11); PLATELET ESTIMATE NORMAL; POIKILOCYTOSIS 3+ (0-0); POLYCHROMASIA 1+ (0-0); SEG NEUT #M 6.5 10^3/ul (1.6-7.5); SEGMENTED NEUTROPHILS (M) % 66 % (39-77); SMUDGE%M 2 % (0-0)
[2017-10-26 11:16] LABS: CREATININE 7.82 mg/dl (0.61-1.24)
[2017-10-26] MEDS: DEXTROSE 5%-0.45% NACL 1,000 ML IV (13:45)
[2017-10-26 15:00] LABS: HEMATOCRIT 22.7 % (42.0-52.0); HEMOGLOBIN 7.1 g/dl (14.0-18.0)
[2017-10-26] MEDS: morphine 2 MG INJ IV (15:07)
[2017-10-26] MEDS: DIATR MEGLU/DIATRIZOATE SODIUM 120 ML BTL (15:55)
[2017-10-26] MEDS: SOD CHLORIDE 0.9% 100 ML ×2 (16:38→22:30)
[2017-10-26] MEDS: TAMSULOSIN (SR) 0.4 MG CAP PO (21:00)
[2017-10-26] MEDS: HEPARIN 1000 UNITS/ML 10 ML INJ (22:29)
[2017-10-26] MEDS: SOD CHLORIDE 0.9% 250 ML IV* (22:30)
[2017-10-26 23:52] LABS: IMMEDIATE SPIN CROSSMATCH 1 4
[2017-10-27 00:29] LABS: HEPATITIS B SURFACE ANTIGEN NEGATIVE (NEGATIVE)
[2017-10-27 00:47] LABS: HEPATITIS B SURFACE ANTIBODY POSITIVE (NEGATIVE)
[2017-10-27] MEDS: HEPARIN 1000 UNITS/ML 10 ML INJ CATHETER ×2 (01:23→20:50)
[2017-10-27] MEDS: PIPER-TAZO 2.25 GM (PMX) 50 ML IVPB ×4 (01:40→22:00)
[2017-10-27] MEDS: INSULIN ASPART [NOVOLOG] 3 ML PEN SC ×4 (05:50→17:26)
[2017-10-27 08:29] LABS: ABNORMAL IP MESSAGE 1; HEMATOCRIT 26.2 % (42.0-52.0); HEMOGLOBIN 8.7 g/dl (14.0-18.0); MEAN CORPUSCULAR HEMOGLOBIN 30.6 pg (29.0-33.0); MEAN CORPUSCULAR HGB CONC 33.2 g/dl (32.0-37.0); MEAN CORPUSCULAR VOLUME 92.3 fl (82.0-101.0); MEAN PLATELET VOLUME 10.3 fl (7.4-10.4); NUCLEATED RED BLOOD CELLS% 0.3 /100WBC (0.0-0.0); PLATELET COUNT 380 10^3/UL (140-415); POSITIVE DIFF @See below; RED BLOOD COUNT 2.84 10^6/ul (4.70-6.10); RED CELL DISTRIBUTION WIDTH 17.3 % (11.5-14.5)
[2017-10-27 08:29] LABS: WHITE BLOOD COUNT 7.5 10^3/ul (4.8-10.8)
[2017-10-27 08:33] LABS: ADD MAN DIFF? YES
[2017-10-27] MEDS: CALCIUM CARBONATE 500 MG CHEW TAB PO ×3 (09:00→17:27)
[2017-10-27 09:05] LABS: ANION GAP 23 (8-16); BLOOD UREA NITROGEN 78 mg/dl (7-20); CALCIUM 6.8 mg/dl (8.4-10.2); CARBON DIOXIDE 21 mmol/L (21-31); CHLORIDE 94 mmol/L (97-110); CREATININE 6.31 mg/dl (0.61-1.24); GLUCOSE 120 mg/dl (70-220); POTASSIUM 4.5 mmol/L (3.5-5.1); SODIUM 133 mmol/L (135-144)
[2017-10-27] MEDS: DEXTROSE 5%-0.45% NACL 1,000 ML IV ×2 (09:30→18:28)
[2017-10-27] MEDS: ATENOLOL 50 MG TAB PO (09:31)
[2017-10-27] MEDS: MULTIVIT/CA CARB/B CMPLX/FA TAB PO (09:31)
[2017-10-27] MEDS: RANOLAZINE (SR) 500 MG TAB PO ×2 (09:31→21:03)
[2017-10-27] MEDS: ASPIRIN (EC) 81 MG TAB PO (09:31)
[2017-10-27] MEDS: CALCIUM ACETATE 667 MG CAP PO ×3 (09:32→17:27)
[2017-10-27] MEDS: AMLODIPINE 5 MG TAB PO (09:34)
[2017-10-27 10:25] LABS: ANISOCYTOSIS 1+ (0-0); BAND NEUTROPHILS #M 1.3 10^3/ul (0.0-0.6); BAND NEUTROPHILS % (M) 18 % (0-4); BASOPHILS % (M) 1 % (0-2); EOSINOPHILS % (M) 2 % (0-7); GIANT THROMBO% (M) 5 % (0-0); LYMPHOCYTES % (M) 1 % (15-51); MICROCYTOSIS 1+ (0-0); MONOCYTE #M 0.3 10^3/ul (0.3-0.9); MONOCYTES % (M) 5 % (0-11); MYELOCYTES % (M) 1 % (0-0); PLATELET ESTIMATE NORMAL; SEG NEUT #M 5.5 10^3/ul (1.6-7.5); SEGMENTED NEUTROPHILS (M) % 72 % (39-77); SMUDGE%M 2 % (0-0)
[2017-10-27] MEDS: HYDROmorphONE 0.5 MG/0.5 ML SYG IV ×2 (13:50→23:43)
[2017-10-27] MEDS: TAMSULOSIN (SR) 0.4 MG CAP PO (21:03)
[2017-10-27] MEDS: FLUCONAZOLE 100 MG/NS (PMX) 50 ML IVPB (22:00)
[2017-10-28] MEDS: HYDROmorphONE 0.5 MG/0.5 ML SYG IV ×2 (03:31→21:34)
[2017-10-28] MEDS: PIPER-TAZO 2.25 GM (PMX) 50 ML IVPB ×3 (06:07→21:19)
[2017-10-28] MEDS: INSULIN ASPART [NOVOLOG] 3 ML PEN SC ×4 (06:11→17:19)
[2017-10-28 07:11] LABS: ADD MAN DIFF? NO
[2017-10-28 07:15] LABS: ABNORMAL IP MESSAGE 1; BASOPHILS % 0.2 % (0.0-2.0); EOSINOPHILS # 0.1 10^3/ul (0.0-0.5); EOSINOPHILS % 1.1 % (0.0-7.0); HEMATOCRIT 22.8 % (42.0-52.0); HEMOGLOBIN 7.6 g/dl (14.0-18.0); LYMPHOCYTES # 0.3 10^3/ul (0.8-2.9); LYMPHOCYTES % 4.4 % (15.0-51.0); MEAN CORPUSCULAR HEMOGLOBIN 31.5 pg (29.0-33.0); MEAN CORPUSCULAR HGB CONC 33.3 g/dl (32.0-37.0); MEAN CORPUSCULAR VOLUME 94.6 fl (82.0-101.0); MEAN PLATELET VOLUME 10.7 fl (7.4-10.4); MONOCYTE # 0.6 10^3/ul (0.3-0.9); MONOCYTES % 9.6 % (0.0-11.0); NEUTROPHIL # 5.1 10^3/ul (1.6-7.5); NUCLEATED RED BLOOD CELLS% 0.3 /100WBC (0.0-0.0); PLATELET COUNT 356 10^3/UL (140-415); POSITIVE DIFF @See below; RED BLOOD COUNT 2.41 10^6/ul (4.70-6.10); RED CELL DISTRIBUTION WIDTH 17.7 % (11.5-14.5)
[2017-10-28 07:15] LABS: WHITE BLOOD COUNT 6.6 10^3/ul (4.8-10.8)
[2017-10-28 07:47] LABS: VANCOMYCIN,RANDOM 10.8 ug/ml
[2017-10-28 08:08] LABS: ANION GAP 17 (8-16); BLOOD UREA NITROGEN 71 mg/dl (7-20); CALCIUM 6.6 mg/dl (8.4-10.2); CARBON DIOXIDE 24 mmol/L (21-31); CHLORIDE 97 mmol/L (97-110); CREATININE 4.56 mg/dl (0.61-1.24); GLUCOSE 197 mg/dl (70-220); POTASSIUM 3.9 mmol/L (3.5-5.1); SODIUM 134 mmol/L (135-144)
[2017-10-28] MEDS: CALCIUM CARBONATE 500 MG CHEW TAB PO (09:00)
[2017-10-28] MEDS: CALCIUM ACETATE 667 MG CAP PO (09:07)
[2017-10-28] MEDS: ASPIRIN (EC) 81 MG TAB PO (09:20)
[2017-10-28] MEDS: ATENOLOL 50 MG TAB PO (09:21)
[2017-10-28] MEDS: AMLODIPINE 5 MG TAB PO (09:21)
[2017-10-28] MEDS: RANOLAZINE (SR) 500 MG TAB PO ×2 (09:21→21:42)
[2017-10-28] MEDS: MULTIVIT/CA CARB/B CMPLX/FA TAB PO (09:21)
[2017-10-28] MEDS ORDERED: TPN 1,000 ML IV (10:30)
[2017-10-28] MEDS ORDERED: VANCOMYCIN 1 GM 250 ML IVPB (14:00)
[2017-10-28 14:51] LABS: ALANINE AMINOTRANSFERASE 19 IU/L (13-69); ALBUMIN 2.6 g/dl (3.3-4.9); ALBUMIN/GLOBULIN RATIO 0.92; ALKALINE PHOSPHATASE 53 IU/L (42-121); ANION GAP 18 (8-16); ASPARTATE AMINO TRANSFERASE 20 IU/L (15-46); BLOOD UREA NITROGEN 80 mg/dl (7-20); CALCIUM 6.6 mg/dl (8.4-10.2); CARBON DIOXIDE 23 mmol/L (21-31); CHLORIDE 98 mmol/L (97-110); CREATININE 5.14 mg/dl (0.61-1.24); GLUCOSE 185 mg/dl (70-220); MAGNESIUM 2.1 mg/dl (1.7-2.5); PHOSPHORUS 5.6 mg/dl (2.5-4.9); POTASSIUM 3.8 mmol/L (3.5-5.1); SODIUM 135 mmol/L (135-144); TOTAL PROTEIN 5.4 g/dl (6.1-8.1); TRIGLYCERIDES 176 mg/dl (0-149)
[2017-10-28] MEDS: LIDOCAINE 1% (MPF) 5 ML VIAL SC (15:15)
[2017-10-28] MEDS: morphine 2 MG INJ IV (16:17)
[2017-10-28] MEDS: DEXTROSE 5%-0.45% NACL 1,000 ML IV (16:20)
[2017-10-28] MEDS: CALCIUM CARBONATE 1.25 GM TAB GTB ×2 (16:35→21:42)
[2017-10-28] MEDS: EPOETIN ALFA 1,000 UNITS/0.1 ML VIAL SC (16:46)
[2017-10-28] MEDS ORDERED: EPOETIN 10000 UNITS/1 ML INJ (ESRD) SC (17:00)
[2017-10-28] MEDS: ACCU-CHEK XX ×2 (17:20→21:42)
[2017-10-28] MEDS: TPN 1,000 ML IV (21:10)
[2017-10-28] MEDS: TAMSULOSIN (SR) 0.4 MG CAP PO (21:42)
[2017-10-29] MEDS: INSULIN ASPART [NOVOLOG] 3 ML PEN SC ×2 (01:29→05:27)
[2017-10-29] MEDS: ACCU-CHEK XX ×3 (01:29→09:05)
[2017-10-29] MEDS ORDERED: VITAMIN A & D 5 GM OINT PACKET TOP (04:21)
[2017-10-29] MEDS: PIPER-TAZO 2.25 GM (PMX) 50 ML IVPB (05:25)
[2017-10-29] MEDS: ACETAMINOPHEN 325 MG TAB PO (07:40)
[2017-10-29 07:56] LABS: WHITE BLOOD COUNT 9.4 10^3/ul (4.8-10.8)
[2017-10-29 07:56] LABS: ABNORMAL IP MESSAGE 1; HEMATOCRIT 17.5 % (42.0-52.0); MEAN CORPUSCULAR HEMOGLOBIN 31.3 pg (29.0-33.0); MEAN CORPUSCULAR HGB CONC 31.4 g/dl (32.0-37.0); MEAN CORPUSCULAR VOLUME 99.4 fl (82.0-101.0); MEAN PLATELET VOLUME 11.1 fl (7.4-10.4); NUCLEATED RED BLOOD CELLS% 1.1 /100WBC (0.0-0.0); PLATELET COUNT 344 10^3/UL (140-415); POSITIVE DIFF @See below; RED BLOOD COUNT 1.76 10^6/ul (4.70-6.10); RED CELL DISTRIBUTION WIDTH 17.7 % (11.5-14.5)
[2017-10-29 08:03] LABS: HEMOGLOBIN 5.5 g/dl (14.0-18.0)
[2017-10-29 08:04] LABS: ADD MAN DIFF? YES
[2017-10-29 08:09] LABS: MAGNESIUM 2.1 mg/dl (1.7-2.5)
[2017-10-29 08:09] LABS: PHOSPHORUS 4.1 mg/dl (2.5-4.9)
[2017-10-29 08:17] LABS: ANION GAP 18 (8-16); CALCIUM 6.3 mg/dl (8.4-10.2); CARBON DIOXIDE 18 mmol/L (21-31); CHLORIDE 106 mmol/L (97-110); CREATININE 6.83 mg/dl (0.61-1.24); GLUCOSE 258 mg/dl (70-220); POTASSIUM 4.2 mmol/L (3.5-5.1); SODIUM 138 mmol/L (135-144)
[2017-10-29 08:27] LABS: BLOOD UREA NITROGEN 134 mg/dl (7-20)
[2017-10-29] MEDS: AMLODIPINE 5 MG TAB PO (08:45)
[2017-10-29] MEDS: CALCITRIOL 0.25 MCG CAP PO (08:57)
[2017-10-29] MEDS: MULTIVIT/CA CARB/B CMPLX/FA TAB PO (08:57)
[2017-10-29] MEDS: RANOLAZINE (SR) 500 MG TAB PO (08:57)
[2017-10-29] MEDS: CALCIUM CARBONATE 1.25 GM TAB GTB (08:57)
[2017-10-29] MEDS: ASPIRIN (EC) 81 MG TAB PO (08:57)
[2017-10-29] MEDS ORDERED: ATENOLOL 25 MG TAB PO (09:00)
[2017-10-29 09:18] LABS: ABNORMAL IP MESSAGE 1; MEAN PLATELET VOLUME 11.6 fl (7.4-10.4); POSITIVE DIFF @See below
[2017-10-29 09:30] LABS: WHITE BLOOD COUNT 8.2 10^3/ul (4.8-10.8)
[2017-10-29 09:30] LABS: HEMATOCRIT 15.6 % (42.0-52.0); MEAN CORPUSCULAR HEMOGLOBIN 31.6 pg (29.0-33.0); MEAN CORPUSCULAR HGB CONC 30.8 g/dl (32.0-37.0); MEAN CORPUSCULAR VOLUME 102.6 fl (82.0-101.0); PLATELET COUNT 313 10^3/UL (140-415); RED BLOOD COUNT 1.52 10^6/ul (4.70-6.10); RED CELL DISTRIBUTION WIDTH 18.6 % (11.5-14.5)
[2017-10-29 09:45] LABS: HEMOGLOBIN 4.8 g/dl (14.0-18.0)
[2017-10-29 09:46] LABS: ADD MAN DIFF? YES
[2017-10-29 09:49] LABS: ANISOCYTOSIS 1+ (0-0); BAND NEUTROPHILS % (M) 11 % (0-4); LYMPHOCYTES #M 0.8 10^3/ul (0.8-2.9); LYMPHOCYTES % (M) 9 % (15-51); MICROCYTOSIS 1+ (0-0); MONOCYTE #M 0.1 10^3/ul (0.3-0.9); MONOCYTES % (M) 2 % (0-11); PLATELET ESTIMATE NORMAL; POLYCHROMASIA 3+ (0-0); SEG NEUT #M 7.4 10^3/ul (1.6-7.5); SEGMENTED NEUTROPHILS (M) % 78 % (39-77); SMUDGE%M 1 % (0-0)
[2017-10-29 10:21] LABS: ANISOCYTOSIS 2+ (0-0); BAND NEUTROPHILS #M 0.8 10^3/ul (0.0-0.6); BAND NEUTROPHILS % (M) 10 % (0-4); LYMPHOCYTES #M 0.9 10^3/ul (0.8-2.9); LYMPHOCYTES % (M) 12 % (15-51); MICROCYTOSIS 1+ (0-0); PLATELET ESTIMATE NORMAL; POLYCHROMASIA 3+ (0-0); SEG NEUT #M 6.5 10^3/ul (1.6-7.5); SEGMENTED NEUTROPHILS (M) % 78 % (39-77)
[2017-11-01 15:35] LABS: PATH REVIEW CH
== END 2017-10-29 14:15 | disposition expired | DRG 871 ==
LOC: MS4 23:10 → E/R 21:05
PROC: 02HV33Z Insertion of Infusion Device into Superior Vena Cava, Percutaneous Approach (ICD-10-PCS; principal; 2017-10-26)
PROC: B518YZA Fluoroscopy of Superior Vena Cava using Other Contrast, Guidance (ICD-10-PCS; 2017-10-26)
PROC: 5A1D70Z Performance of Urinary Filtration, Intermittent, Less than 6 Hours Per Day (ICD-10-PCS; 2017-10-26)
PROC: 30233N1 Transfusion of Nonautologous Red Blood Cells into Peripheral Vein, Percutaneous Approach (ICD-10-PCS; 2017-10-26)
PROC: 02H633Z Insertion of Infusion Device into Right Atrium, Percutaneous Approach (ICD-10-PCS; 2017-10-28)
DX: A41.9 Sepsis, unspecified organism (principal); J18.9 Pneumonia, unspecified organism; E87.2 Acidosis; N17.9 Acute kidney failure, unspecified; N18.4 Chronic kidney disease, stage 4 (severe); E87.1 Hypo-osmolality and hyponatremia; K56.7 Ileus, unspecified; R65.20 Severe sepsis without septic shock; E11.22 Type 2 diabetes mellitus with diabetic chronic kidney disease; N28.1 Cyst of kidney, acquired; C61 Malignant neoplasm of prostate; D53.9 Nutritional anemia, unspecified; I25.10 Atherosclerotic heart disease of native coronary artery without angina pectoris; I12.9 Hypertensive chronic kidney disease with stage 1 through stage 4 chronic kidney disease, or unspecified chronic kidney disease; R91.8 Other nonspecific abnormal finding of lung field; Z66 Do not resuscitate; Z87.891 Personal history of nicotine dependence; Z95.5 Presence of coronary angioplasty implant and graft; Z79.899 Other long term (current) drug therapy; Z79.82 Long term (current) use of aspirin; Z79.4 Long term (current) use of insulin
CPT/HCPCS: 36415; 36430; 36556; 36569; 36600; 71045; 71250; 74018; 74019; 74176; 76705; 76775; 76937; 76942; 78306; 80048; 80053; 80061; 80202; 81001; 82378; 82550; 82553; 82803; 82962; 83036; 83540; 83605; 83690; 83735; 84100; 84134; 84153; 84154; 84443; 84478; 84484; 85014; 85018; 85025; 85610; 85651; 85730; 86140; 86706; 86850; 86900; 86901; 86920; 87040; 87086; 87340; 90935; 93005; 94640; 94664; 96374; 96375; 96376; 99291-25; A9503